=== PATIENT | female | born 1970 | race Caucasian/White ===

== ENCOUNTER 2020-11-30 19:00 | Emergency (ER) | payer OTHER, SELFPAY ==
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
[2020-11-30 19:19] VITALS: BP 212/110; PULSE 77; RESP 20; TEMP 37.1; O2SAT 100
[2020-11-30] MEDS: ONDANSETRON HCL ODT 4 MG TABLET PO (19:59)
[2020-11-30] MEDS: KETOROLAC (*BKC) 60 MG/2 ML VIAL IM (20:01)
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
[2020-11-30] MEDS: DEXAMETHASONE SOD PHOS INJ 4 MG/ML VIAL 10 MG BY MOUTH (21:25)
[2020-11-30] MEDS: BACLOFEN 10 MG TABLET 20 MG PO (21:25)
[2020-11-30 21:29] VITALS: BP 181/99; PULSE 72; RESP 20; O2SAT 100
--- NOTE | 2020-11-30 21:52 | PC.NURSE ---
1910 pt bedside blood sugar was 82
== END 2020-11-30 21:53 | disposition home or self-care (01) ==
PROVIDERS: Emergency Provider Emergency Medicine
DX: M54.2 Cervicalgia (principal)
CPT/HCPCS: 70450; 72125; 96372; 99283; 99284; A9270; J1100; J1885; L0150

== ENCOUNTER 2021-04-20 09:56 | Outpatient (CLI) | payer BC, SELFPAY ==
[2021-04-22 12:59] LABS: TB Skin Test Erythema 0 mm; TB Skin Test Induration 0 mm (0-10); TB Skin Test Interpretation Negative (Negative); TB Skin Test Site Left Arm
== END 2021-04-20 09:57 | disposition home or self-care (01) ==
LOC: CHSLAB 10:00
PROVIDERS: PCP Nurse Practitioner Family; Visit Provider Nurse Practitioner Family
DX: Z02.1 Encounter for pre-employment examination (principal)
CPT/HCPCS: 36415; 86580

== ENCOUNTER 2021-10-05 09:53 | Outpatient (CLI) | payer BC, SELFPAY ==
[2021-10-05 10:58] LABS: SARS-CoV-2 RNA PCR Negative (Negative)
== END 2021-10-05 09:54 | disposition home or self-care (01) ==
LOC: CHSLAB 09:56
PROVIDERS: PCP Nurse Practitioner Family; Visit Provider Nurse Practitioner Family
DX: R09.81 Nasal congestion (principal); Z20.822 Contact with and (suspected) exposure to COVID-19
CPT/HCPCS: C9803; U0003; U0005